=== PATIENT | male | born 1945 | race Caucasian/White ===

== ENCOUNTER 2021-01-04 00:55 | Outpatient (CLI) | payer MEDICARE, SELFPAY ==
--- NOTE | 2021-01-04 | DI.RAD_ITS ---
Exam(s) RF MODIFIED SPEECH BA SWALLOW TECHNIQUE: Modified barium swallow was performed in conjunction with speech pathology. CONTRAST MATERIAL: Oral barium contrast was administered. COMPARISON: No exams were available for comparison FINDINGS: Note that this is not a dedicated esophagram, distal esophagus was not evaluated. There was aspiration during the examination with thin liquids. The patient did exhibit a cough refle x. There was a delay in the oral phase of swallowing particularly with semi-solid and solid foods. Speech pathology report to follow. IMPRESSION: Aspiration during the examination with thin liquids. Speech pathology report to follow. RADIATION DOSE DELIVERED: edu Stevenson=30.5 mGy
[2021-01-04] MEDS: Barium Sulfate 81% w/w for Oral Suspension 148 GM BTL PO (14:48)
[2021-01-04] MEDS: Barium Sulfate Oral Paste 40% W/V 230 ML TUBE 15 ML PO (14:51)
[2021-01-04] MEDS: Barium Sulfate 40% W/V 240 ML BTL 70 ML PO (14:52)
[2021-01-04] MEDS: Barium Sulfate 40% W/V 1500 CPS 250 ML BTL 60 ML PO (14:52)
--- NOTE | 2021-01-04 15:43 | ST.MBS ---
Date of Service Date of service: 01/04/21 Time of Service: 15:43 Modified Barium Swallow Study Findings: Videofluoroscopic Swallowing Evaluation (VFSE) / Modified Barium Swallow Study (MBSS) Speech Language Pathology Report HPI: Patient is a 75 year old male referred for VFSE/MBSS from Dr. Nieves given clinical s/sx aspiration / hx dysphagia. 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 Inquires re possible need for additional dilation which had been done in 2019. IMPRESSIONS: Swallow safety is impaired; swallow efficiency is impaired. Moderate oropharyngeal dysphagia with esophageal component, likely chronic, characterized primarily by reduced pharyngeal swallow onset timing, partial epiglottic inversion, reduced base of tongue retraction, resulting in trace to mild aspiration during swallow with thin liquids, overall moderate pharyngeal residue (vallecular> piriform sinus) with solid textures and continued report of globus with solid foods, occasionally pills; patient demonstrates cough response when aspiration is observed, indicating adequate laryngeal sensation; mildly reduced hyolaryngeal excursion with reduced UES opening appears to at least partially contribute to esophageal retention with solid foods, as well as pharyngeal residue; 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 Patient appears to be at moderate risk for potential aspiration PNA and/or pulmonary compromise and low for malnutrition, low for dehydration. Diet modification is indicated (Level 7 easy to chew, 0 thin liquids); non-oral nutrition is not indicated. Swallow prognosis is good/fair given time since completion of COMPUTER SOFTWARE ENGINEER and pending patient/caregiver training in risk management as outlined, including use of trialed compensatory strategies as outlined, pharyngeal exercise as appropriate. Patient appears to be a good candidate for behavioral swallow rehabilitation. Specialist referrals: GI consult, may consider repeat esophageal dilation per discretion of GI Ancillary tests: N/A Diet texture recommendation: IDDSI Level 7-Regular/Easy to Chew Solids, 0-Thin Liquids Please see further details at [email or web address] Diet texture modification is per patient's preference; please adjust diet textures at patient's discretion & collaboration with care team. Risk Management: Compensatory techniques precautions: Small sips, bites; thin liquid wash; alternate liquids with solids; may consider gum chewing throughout the day to encourage frequent saliva swallows; consider participation in pharyngeal exercise program for possible introduction of our RMST to ensure cough efficiency and effectiveness Control risk factors for aspiration pneumonia via (a) thorough oral hygiene & (b) maintaining physical mobility as tolerated PLAN: Therapy: Recommend subsequent outpatient session with BUILDING SURVEYOR to review results of today's exam and develop treatment plan as appropriate. Goal: TBD pending patient/caregiver interview Follow-up exam: N/A Thank you for allowing me to take part in this patient's care. Please feel free to contact me with any questions/concerns. Magy Caro MA [facility]3]-BUILDING SURVEYOR Speech Language Pathologist [phone] OBJECTIVE: Videofluoroscopic Swallow Evaluation (VFSE/MBSS) was conducted in the lateral and [id number] projections by Speech-Language Pathologist, in collaboration with Radiologist, to evaluate oropharyngeal swallow function. Anatomic view under fluoroscopy: WFL PO Barium Contrast Trials Oral barium water-soluble contrast was administered as follows: IDDSI Level 0 Varibar thin liquid (40% w/v) IDDSI Level 2 Varibar nectar thick/mildly thick liquid (40% w/v) IDDSI Level 3 Varibar thin honey/liquidised/moderately-thick (40% w/v) IDDSI Level 4 Varibar pudding/pureed/extremely thick (40% w/v) IDDSI Level 7 Regular Solid: 1/2 joellen cracker coated in 3 mL Varibar pudding PHYSIOLOGIC FINDINGS (1) Oral Impairment 1 Lip Closure 0 no labial escape 2 Tongue Control 0 cohesive bolus between tongue to palatal seal 3 Bolus Preparation/Mastication 0- Timely and efficient chewing/mashing 4 Bolus Transport/Lingual Motion 0 brisk tongue motion 5 Oral residue 1- Trace residue lining oral structures Location tongue 6 Initiation of pharyngeal swallow 2- Bolus head at posterior laryngeal surface of epiglottis Pharyngeal Impairment 7 Velar Elevation 0- No bolus between soft palate and pharyngeal wall 8 Laryngeal Elevation 1- Partial superior movement of thyroid cartilage with partial approximation of arytenoids to epiglottic petiole 9 Anterior Hyoid Excursion 1- Partial anterior movement 10 Epiglottic Movement 1- Partial inversion *foreshortening of the epiglottis noted on laryngoscopy 11 Laryngeal Vestibule Closure 1- Incomplete; narrow column of air/contrast in laryngeal vestibule Penetration occurs during initial swallow onset from current bolus Aspiration occurs during initial swallow onset from current bolus PAS / Overall 8-Point Penetration-Aspiration Scale (2) 6 - Material enters the airway passes below the vocal folds and is ejected into the larynx or out of the airway Clinical Indicator(s) of Prandial/Postprandial Aspiration cough 12 Pharyngeal Stripping Wave 1- Present; diminished 13 Pharyngeal Contraction 0- Complete 14 PES/UES Opening 1- Partial distension and partial duration; partial obstruction of flow 15 Tongue Base Retraction 2- Narrow column of contrast between tongue base and posterior pharyngeal wall 16 Pharyngeal residue 2- Collection of residue within or on pharyngeal structures Location Shorter Pharyngeal Residue Severity Rating Scale(3) Tongue base Valleculae IV Moderate 25-50% Epiglottic ligament covered Pyriform sinuses IV Moderate 25-50% Up wall to half full Esophageal Impairment 17 Esophageal Clearance in Upright Position 1- Esophageal retention This study was performed for interpretation only of the oropharyngeal and pharyngoesophageal domains of swallowing, and is not intended to diagnose any other radiologic abnormalities or substitute for a formal esophagram study. DIGEST Scale Rating (4) Interaction of Assigned Safety and Efficiency Grades (0=No Impairment, 1=Mild, 2=Moderate, 3=Severe, 4=Life Threatening) Safety Grade S0 S1 S2 S3 S4 Efficiency Grade E0 0 1 2 3 3 E1 1 1 2 3 3 E2 1 2 2 3 3 E3 2 2 3 3 4 E4 3 3 3 4 4 Overall moderate pharyngeal Impairment - Above score(s) represent swallowing events without application of compensatory techniques ELI: (5) Severity LEVEL 6 - Full PO: normal diet - Within functional limits/modified independence Trialed Compensatory Strategies & Outcome: Maneuvers Successful/Unsuccessful (+/-) Postures Successful/Unsuccessful (+/-) 3 second Preparatory Set + Chin Tuck Posture Cough Posterior Head tilt Reflexive + Cued Throat Clear Head Tilt to Reflexive Left Cued Right Saliva swallow x2-3 + Head Turn/Rotation to Supraglottic Swallow Left Super-supraglottic Swallow + Right Bolus Modifications Successful/Unsuccessful (+/-) Delivery/Alternating Consistencies - Wash with thin + Delivery/Via Straw Reduced Volume + Reduced Rate of Intake + Increased Viscosity Other: Coding CPT Codes MOTION FLUOROSCOPY/SWALLOW - 72270 ([id number]) 1: Sejal Wagner et al. ?MBS measurement tool for swallow impairment--MBSImp: establishing a standard.? Dysphagia vol. 23,4 (2008): 392-405. doi:10.1007/[id number] 2: (Charla et al, 1995) 3: (Ryan, et al, 2015) 4: (O'Jakob, et al, 1999, Jannette, et al. Cancer. 2017;123(1):62-70) The Dynamic Imaging Grade of Swallowing Toxicity (DIGEST) Score represents a set of structured criteria primarily validated for head and neck cancer patients to grade the interaction of safety, efficiency, and overall impairment of the pharyngeal swallow, meant to assist in prioritization of targets for dysphagia treatment planning. 5: The Dysphagia Outcome and Severity Scale is a 7-point scale developed to systematically rate the functional severity of dysphagia based on objective assessment and make recommendations for diet level, independence level, and type of nutrition.
== END 2021-01-04 01:15 ==
PROVIDERS: PCP Family Medicine; Referring Provider Preventive Medicine Undersea and Hyperbaric Medicine; Visit Provider Speech-Language Pathologist
DX: C32.9 Malignant neoplasm of larynx, unspecified (principal)
CPT/HCPCS: 92611; 74221